=== PATIENT | male | born 1960 | race Caucasian/White ===

== ENCOUNTER 2024-10-16 09:30 | Outpatient (CLI) | payer MEDICARE, OTHER ==
[2024-10-16] MEDS ORDERED: Iopamidol 300 61% 100 ML VIAL FS ONE (13:44)
== END 2024-10-16 09:31 | disposition home or self-care (01) ==
LOC: CSHCT 09:30
PROVIDERS: ATTEND Nurse Practitioner Family
DX: C7A.021 Malignant carcinoid tumor of the cecum (principal); K62.89 Other specified diseases of anus and rectum; C78.7 Secondary malignant neoplasm of liver and intrahepatic bile duct; R59.1 Generalized enlarged lymph nodes; J98.4 Other disorders of lung
CPT/HCPCS: 71270; 74178; Q9967